=== PATIENT | female | born 1970 | race Native Hawaiian/Other Pacific Islander ===

== ENCOUNTER 2021-04-04 09:15 | Outpatient (CLI) | payer OTHER ==
[~2021-04-04 09:15] MED LIST: GABA100C2 PO; GABA300C2 PO; LIPITOR10 MG PO; RANI150T78 PO; SERT100T PO; TIZA4TAB5 PO; TRAM50TA PO
== END 2021-04-04 20:24 | disposition home or self-care (01) ==
LOC: RAD 09:15
PROVIDERS: ATTEND Internal Medicine
DX: F30.9 Manic episode, unspecified (principal); S73.005A Unspecified dislocation of left hip, initial encounter; S73.004A Unspecified dislocation of right hip, initial encounter; M25.552 Pain in left hip; M25.551 Pain in right hip